=== PATIENT | female | born 1995 | race Caucasian/White ===

== ENCOUNTER 2017-02-07 19:24 | Emergency (ER) | payer BC ==
--- NOTE | 2017-02-13 02:33 | ER ---
ADMIT: 02/07/2017 RM/LOC: ER [facility] MR#: [id number] [address] [facility] [address] [place], [place] [id number] CHEMA [address]ADIA [address] [place] [address] Emergency Room Report SEX: F AGE: 21 : 1995 DATE: 02/07/2017 HISTORY OF PRESENT ILLNESS: This is a 21-year-old, presents to the emergency room with abdominal cramping and it was so acute while she was at work that she had a syncopal episode. She told her boss that this was related to her pain. She fell against a meal cart and then slid down to the floor. She states that she had an IUD in place on January 18 and just started her period today, but the cramp was so acute that she lost control and just fell down and passed out. She has a history of manic bipolar, PTSD, and personality disorder. She has had tonsillectomy and ovarian cyst. ALLERGIES: SHE IS ALLERGIC TO IMITREX, BENADRYL, AND PENICILLIN. PHYSICAL EXAMINATION: VITAL SIGNS: Within normal limits. The physical examination is within normal limits. She is neurologically intact. I did do orthostatic blood pressure lying down is 118/62 with a pulse of 77, sitting 123/72 and standing blood pressure 119/75. The patient also brought a note for work for workmen's comp. LABORATORY DATA: CBC within normal limits. Chemistry within normal limits. HCG and urine negative. UA; blood 2+, and she is on her menses. CLINICAL IMPRESSION: Syncopal episode secondary to acute pain. She was given a shot of Toradol for her cramp and advised to continue her Tylenol or Motrin. NEELIMA Kerr / Vicente Van MD / maddison JOB #: [id number] CC: Vicente Van MD, Attending Physician UNKNOWN, Family Physician
== END 2017-02-07 21:50 | disposition home or self-care (01) ==
LOC: ER 19:24
DX: R55 Syncope and collapse (principal); R10.9 Unspecified abdominal pain; F31.9 Bipolar disorder, unspecified; F17.210 Nicotine dependence, cigarettes, uncomplicated; Z88.6 Allergy status to analgesic agent; Z88.0 Allergy status to penicillin